=== PATIENT | male | born 1945 | race Caucasian/White ===

== ENCOUNTER 2021-10-15 20:24 | Emergency (ER) | payer MEDICARE ==
[2021-10-15] MEDS ORDERED: OXY-IR 5MG5 MG PO (23:25)
[2021-10-16] MEDS ORDERED: OXY-IR 5MG5 MG PO (11:29)
== END 2021-10-15 23:50 | disposition home or self-care (01) ==
LOC: FER 20:24
DX: S22.089A Unspecified fracture of T11-T12 vertebra, initial encounter for closed fracture (principal); S00.03XA Contusion of scalp, initial encounter; S80.212A Abrasion, left knee, initial encounter; S80.211A Abrasion, right knee, initial encounter; S09.90XA Unspecified injury of head, initial encounter; I10 Essential (primary) hypertension; I48.91 Unspecified atrial fibrillation; W01.0XXA Fall on same level from slipping, tripping and stumbling without subsequent striking against object, initial encounter; Y92.009 Unspecified place in unspecified non-institutional (private) residence as the place of occurrence of the external cause
CPT/HCPCS: 70450; 72131